=== PATIENT | female | born 2000 | race Caucasian/White ===

== ENCOUNTER 2024-11-26 02:31 | Emergency (ER) | payer OTHER ==
[~2024-11-26] VITALS: Ht 162.6 cm; Wt 58.2 kg
[2024-11-26 02:33] VITALS: BP 120/69; PULSE 85; RESP 19; TEMP 97.9; O2SAT 99
== END 2024-11-26 03:32 | disposition home or self-care (01) ==
LOC: EMS 02:31
DX: R42 Dizziness and giddiness (principal); R11.0 Nausea; V43.52XA Car driver injured in collision with other type car in traffic accident, initial encounter; Y93.89 Activity, other specified; Y92.410 Unspecified street and highway as the place of occurrence of the external cause; Y99.8 Other external cause status
CPT/HCPCS: 99282; Z7502